=== PATIENT | female | born 1965 | race Caucasian/White ===

== ENCOUNTER 2017-06-22 08:10 | Emergency (ER) | payer OTHER ==
--- NOTE | 2017-06-22 10:07 | UC ---
Lower Extremity/Ankle HPI - HPI Summary HPI Summary: Stung by wasp R posterior ankle 3 days ago, since then area has been painful and red. Especially painful after reclining/elevating. Some swelling noted in ankle. Pt is leaving town tomorrow. Denies measured fever at home, no shaking chills. - History of Current Complaint Chief Complaint: UCSkin Stated Complaint: RED SWOLLEN LEG=BUG BITE Time Seen by Provider: 06/22/17 09:38 Hx Obtained From: Patient Hx Last Menstrual Period: 6 weeks ago ?: No Onset/Duration: Sudden Onset Severity Initially: Mild Severity Currently: Moderate Aggravating Factor(s): Standing, Ambulation Alleviating Factor(s): Rest Able to Bear Weight: Yes - Allergies/Home Medications Allergies/Adverse Reactions: Allergies Allergy/AdvReac Type Severity Reaction Status Date / Time NSAIDs AdvReac Unknown taking Verified 06/22/17 08:31 lithium - drug interaction Home Medications: Home Medications Lurasidone HCl [Latuda] 120 mg PO DAILY 06/22/17 [History Confirmed 06/22/17] Sabina-3 Fatty Acids [Fish Oil] 1 cap PO DAILY 06/22/17 [History Confirmed ] PMH/Surg Hx/FS Hx/Imm Hx Endocrine History: Hypothyroidism Respiratory History: Asthma Psychological History: Bipolar Disorder - Surgical History Surgical History: Yes Surgery Procedure, Year, and Place: pelvic tumor removal 2008. ovarian cyst 2001. fibroid removal 1997. knee surgery 1980. urethral dilation - Family History Known Family History: Negative: Blood Disorder - Social History Alcohol Use: None Substance Use Type: None Smoking Status (MU): Never Smoked Tobacco Review of Systems Constitutional: Negative Skin: Rash Eyes: Negative ENT: Negative Respiratory: Negative Cardiovascular: Negative Gastrointestinal: Negative Genitourinary: Negative Motor: Negative Neurovascular: Negative Musculoskeletal: Negative Neurological: Negative Psychological: Negative All Other Systems Reviewed And Are Negative: Yes Physical Exam Triage Information Reviewed: Yes Appearance: Well-Appearing, No Pain Distress - pt denies feeling feverish at this time, Well-Nourished Vital Signs: Initial Vital Signs Temp 100.8 F 06/22/17 08:32 Pulse 66 06/22/17 08:32 Resp 18 06/22/17 08:32 BP 131/67 06/22/17 08:32 Pulse Ox 100 06/22/17 08:32 Vital Signs Reviewed: Yes Eye Exam: Normal, Other - PERRL Eyes: Positive: Conjunctiva Clear ENT Exam: Normal ENT: Positive: Normal ENT inspection, Hearing grossly normal, Pharynx normal, TMs normal Dental Exam: Normal Neck exam: Normal Neck: Positive: Supple, Nontender, No Lymphadenopathy Respiratory Exam: Normal Respiratory: Positive: Chest non-tender, Lungs clear, Normal breath sounds, No respiratory distress, No accessory muscle use Cardiovascular Exam: Normal Cardiovascular: Positive: RRR, No Murmur Musculoskeletal Exam: Normal Musculoskeletal: Positive: Strength Intact, ROM Intact Neurological Exam: Normal Neurological: Positive: Alert Psychological Exam: Normal Skin Exam: Other - R posterior ankle/lower leg approx 12 cm x 10cm red area, not warm or swollen to touch, appears to be postinflammatory hyperpigmentation, no streaking or drainage Lower Extremity Course/Dx - Differential Dx/Diagnosis Provider Diagnoses: insect sting RLL, large local reaction. elevated blood pressure due to pain Discharge - Discharge Plan Condition: Stable Disposition: HOME Prescriptions: predniSONE TAB* [Deltasone TAB*] 40 mg PO DAILY #9 tab Patient Education Materials: Insect Bite or Sting (ED) Referrals: David Garg MD [Primary Care Provider] - Additional Instructions: Use warmth and elevation when possible. If pain, redness, fever, or other symptoms worsen, please call or return to discuss antibiotic therapy.
[2017-06-22 10:36] VITALS: BP 130/68
== END 2017-06-22 10:22 | disposition home or self-care (01) ==
LOC: UCEAST 08:10
DX: T63.441A Toxic effect of venom of bees, accidental (unintentional), initial encounter (principal); M25.471 Effusion, right ankle; Y92.9 Unspecified place or not applicable; Z88.6 Allergy status to analgesic agent; E03.9 Hypothyroidism, unspecified; J45.909 Unspecified asthma, uncomplicated; F31.9 Bipolar disorder, unspecified
CPT/HCPCS: 99212; G0463

== ENCOUNTER 2018-04-02 17:50 | Emergency (ER) | payer MEDICARE, OTHER ==
[2018-04-02 18:04] VITALS: BP 173/95
[2018-04-02] MEDS ORDERED: Acetaminophen TAB* 325 MG PO ONE (18:17)
[2018-04-02] MEDS ORDERED: HYDROcodone/ACETAMIN 5-325 MG* 1 TAB PO ONE (18:49)
--- NOTE | 2018-04-02 18:49 | ED ---
Bite Injury/Animal - HPI Summary HPI Summary: Complains of puncture wounds to base of right thumb from cat bite, dec ROM of right thumb and cat scratch wounds to left wrist this afternoon. States cat belongs to stepfather, Up-to-date on vaccinations. - History of Current Complaint Chief Complaint: UCBiteInjury Stated Complaint: CAT BITE Time Seen by Provider: 04/02/18 18:22 Hx Obtained From: Patient Hx Last Menstrual Period: 6 weeks ago Onset of Injury: Happened hours ago Type of Bite: Animal Has Animal Been Immunized?: Yes Severity Initially: Moderate Severity Currently: Moderate Pain Intensity: 7 Pain Scale Used: 0-10 Numeric Character: Puncture - Allergies/Home Medications Allergies/Adverse Reactions: Allergies Allergy/AdvReac Type Severity Reaction Status Date / Time MS NSAIDs [NSAIDs] AdvReac Unknown taking Verified 04/02/18 18:05 lithium - drug interaction Home Medications: Home Medications Cholecalciferol TAB* [Vitamin D TAB*] 1,000 unit PO DAILY 04/02/18 [History Confirmed 04/02/18] Dextroamphetamine/Amphetamine [Adderall Xr 20 mg Capsule] 20 mg PO DAILY [History Confirmed 04/02/18] PMH/Surg Hx/FS Hx/Imm Hx Endocrine/Hematology History: Reports: Hx Thyroid Disease - hypothyroidism Respiratory History: Reports: Hx Asthma - A-SYMPTOMATIC FOR SEVERAL YEARS NOW Denies: Hx Chronic Obstructive Pulmonary Disease (COPD), Other Respiratory Problems/Disorders - Surgical History Surgery Procedure, Year, and Place: pelvic tumor removal 2008. ovarian cyst 2001. fibroid removal 1997. knee surgery 1980. urethral dilation Infectious Disease History: No Infectious Disease History: Denies: Traveled Outside the [place] in Last 30 Days - Family History Known Family History: Negative: Blood Disorder - Social History Alcohol Use: None Substance Use Type: Reports: None Smoking Status (MU): Never Smoked Tobacco Review of Systems Constitutional: Negative Eyes: Negative Cardiovascular: Negative Respiratory: Negative Gastrointestinal: Negative Genitourinary: Negative Musculoskeletal: Negative Skin: Negative Neurological: Negative Psychological: Normal All Other Systems Reviewed And Are Negative: Yes Physical Exam Triage Information Reviewed: Yes Vital Signs On Initial Exam: Initial Vitals Temp Pulse Resp BP Pulse Ox 99.7 F 60 18 173/95 98 04/02/18 18:00 04/02/18 18:00 04/02/18 18:00 04/02/18 18:00 04/02/18 18:00 Vital Signs Reviewed: Yes Appearance: Positive: Well-Appearing Skin: Positive: Warm Head/Face: Positive: Normal Head/Face Inspection Eyes: Positive: Normal Neck: Positive: Supple Respiratory/Lung Sounds: Positive: Clear to Auscultation Cardiovascular: Positive: Normal Abdomen Description: Positive: Nontender Musculoskeletal: Positive: Normal Neurological: Positive: Normal Psychiatric: Positive: Normal AVPU Assessment: Alert - [place] Coma Scale Best Eye Response: 4 - Spontaneous Best Motor Response: 6 - Obeys Commands Best Verbal Response: 5 - Oriented Coma Scale Total: 15 Diagnostics - Vital Signs Vital Signs Temp Pulse Resp BP Pulse Ox 04/02/18 18:00 99.7 F 60 18 173/95 98 - Laboratory Lab Statement: Any lab studies that have been ordered have been reviewed, and results considered in the medical decision making process. Bite Injury Course/Dx - Course Course Of Treatment: Cat bite puncture wounds to right hand, with cat scratch wounds to left wrist. PMS intact, flexion and extension partially limited. Opposition of right thumb to tips of all other 4 fingers intact. Puncture wound will be left unsutured. Patient wounds flushed with saline and Betadine. Given rx Augmentin and hydrocodone - Diagnoses Provider Diagnosis: Cat bite, Cat scratch Discharge - Sign-Out/Discharge Documenting (check all that apply): Discharge/Admit/Transfer - Discharge Plan Condition: Stable Disposition: HOME Prescriptions: Amoxicillin/Clavulanate TAB* [Augmentin TAB 875*] 875 mg PO BID #20 tab HYDROcodone/ACETAMIN 5-325 MG* [Ramey 5-325 TAB*] 1 tab PO Q6H PRN 2 Days #8 tab MDD 4-6 tabs PRN Reason: Pain Patient Education Materials: Animal Bite (ED) Referrals: David Garg MD [Primary Care Provider] - Additional Instructions: Take antibiotics as directed. Follow-up with primary care - Billing Disposition and Condition Condition: STABLE Disposition: HOME
[2018-04-02] MEDS ORDERED: Tetan/Diph/Pertus SYR(Tdap)* 0.5 ML SYR(BOOSTRIX) use SYR IM ONE (18:55)
== END 2018-04-02 19:15 | disposition home or self-care (01) ==
LOC: UCEAST 17:50
DX: S61.031A Puncture wound without foreign body of right thumb without damage to nail, initial encounter (principal); W55.01XA Bitten by cat, initial encounter; S60.812A Abrasion of left wrist, initial encounter; W55.03XA Scratched by cat, initial encounter; Y93.9 Activity, unspecified; Y92.009 Unspecified place in unspecified non-institutional (private) residence as the place of occurrence of the external cause; Z23 Encounter for immunization; E03.9 Hypothyroidism, unspecified; Z88.6 Allergy status to analgesic agent
CPT/HCPCS: 90471; 90715; 99213; A9270-GY; G0463

== ENCOUNTER 2021-01-31 20:27 | Observation (INO) ==
[2021-01-31] MEDS ORDERED: Iodixanol (CONTRAST) 320 MG/ML 100 ML SDV IV ONE (21:00)
[2021-01-31 21:02] LABS: ABS Basophils 0.1 10^3/ul (0-0.2); ABS Eosinophils 0.4 10^3/ul (0-0.6); ABS Lymphocytes 1.4 10^3/ul (1.0-4.8); ABS Monocytes 0.5 10^3/ul (0-0.8); Eosinophil % 3.7 %; Hematocrit 41 % (35-47); Lymphocyte % 13.7 %; Mean Corpuscular HGB Conc 34 g/dL (31-36); Mean Corpuscular Hemoglobin 31 pg (27-31); Mean Corpuscular Volume 92 fL (80-97); Platelet Count 303 10^3/uL (150-450); Red Blood Count 4.49 10^6 /uL (3.70-4.87); Red Cell Distribution Width 14 % (10-15); White Blood Count 10.4 10^3/uL (3.5-10.8)
[2021-01-31 21:12] LABS: Albumin 4.6 g/dL (3.2-5.2); Albumin/Globulin Ratio 1.6 (1-3); BUN/Creatinine Ratio 10.9 (8-20); Calcium 9.8 mg/dL (8.6-10.3); EGFR African American 62.2 (>60); EGFR Non-African American 51.4 (>60); Globulin 2.8 g/dL (2-4); Potassium 4.1 mmol/L (3.5-5.0); Total Bilirubin 0.6 mg/dL (0.2-1.0); Total Protein 7.4 g/dL (6.4-8.9)
[2021-01-31 21:13] LABS: Activated Partial Thrombo Time 29.3 seconds (26.0-38.0); INR 1.01 (0.82-1.09)
[2021-02-01] MEDS ORDERED: Ondansetron 4 mg VIAL 2 MG/ML 2 ml VIAL IV PRN (01:32)
[2021-02-01] MEDS ORDERED: NS 0.9% 1000 ml BAG 1,000 ML IV SCH (02:00)
[2021-02-01 02:40] LABS: Lithium 0.83 mmol/L (0.6-1.2)
[2021-02-01 03:00] LABS: TSH Ultra Thyroid Stim Horm 2.07 mcIU/mL (0.34-5.60)
[2021-02-01] MEDS: Enoxaparin 40 MG/0.4 ML SYR SUBCUT SCH (03:27)
[2021-02-01 09:18] LABS: Folate 18.51 ng/mL (>3.99)
[2021-02-01] MEDS: CMCS: Lamotrigine XR 300 mg TAB (NF) PO SCH (10:34)
[2021-02-01] MEDS: Amphetamine MIXED SALT 10mgTAB PO SCH (12:11)
[2021-02-01] MEDS ORDERED: Gadoteridol (CONTRAST) 279.3 MG/ML 10 ML IV ONE (13:37)
[2021-02-01] MEDS: Lurasidone 120 mg TAB PO SCH (21:14)
[2021-02-02 05:31] LABS: ABS Basophils 0.1 10^3/ul (0-0.2); ABS Eosinophils 0.8 10^3/ul (0-0.6); ABS Lymphocytes 1.5 10^3/ul (1.0-4.8); ABS Monocytes 0.4 10^3/ul (0-0.8); ABS Neutrophils 3.8 10^3/ul (1.5-7.7); Hematocrit 37 % (35-47); Hemoglobin 12.5 g/dL (12.0-16.0); Mean Corpuscular HGB Conc 34 g/dL (31-36); Mean Corpuscular Hemoglobin 31 pg (27-31); Mean Corpuscular Volume 91 fL (80-97); Mean Platelet Volume 7.2 fL (7.4-10.4); Platelet Count 234 10^3/uL (150-450); Red Blood Count 4.04 10^6 /uL (3.70-4.87); Red Cell Distribution Width 14 % (10-15); White Blood Count 6.6 10^3/uL (3.5-10.8)
[2021-02-02 05:49] LABS: BUN/Creatinine Ratio 14.3 (8-20); Calcium 9.5 mg/dL (8.6-10.3); EGFR African American 77.4 (>60); EGFR Non-African American 63.9 (>60); HDL Cholesterol 53.6 mg/dL; Magnesium 2.1 mg/dL (1.9-2.7); Potassium 4.1 mmol/L (3.5-5.0)
[2021-02-02] MEDS: Amphetamine MIXED SALT 10mgTAB PO SCH (09:12)
[2021-02-02] MEDS: Aspirin EC 81 mg TAB.EC (enteric coated) PO SCH (09:13)
[2021-02-02] MEDS: Enoxaparin 40 MG/0.4 ML SYR SUBCUT SCH (09:13)
[2021-02-02] MEDS: CMCS: Lamotrigine XR 300 mg TAB (NF) PO SCH (09:15)
[2021-02-02] MEDS: Lurasidone 120 mg TAB PO SCH (19:22)
[2021-02-03] MEDS: Enoxaparin 40 MG/0.4 ML SYR SUBCUT SCH (09:58)
[2021-02-03] MEDS: CMCS: Lamotrigine XR 300 mg TAB (NF) PO SCH (09:58)
[2021-02-03] MEDS: Aspirin EC 81 mg TAB.EC (enteric coated) PO SCH (09:59)
[2021-02-03] MEDS: Amphetamine MIXED SALT 10mgTAB PO SCH (09:59)
[2021-02-03 13:14] VITALS: BP 150/64
[2021-02-04 10:49] LABS: Lamotrigine 8.6 mcg/mL (2.5 - 15.0)
== END 2021-02-03 15:35 | disposition home or self-care (01) ==
LOC: ED 20:27 → MEDTELE 20:27
PROVIDERS: ADMIT Internal Medicine; ATTEND Pediatrics